=== PATIENT | female | born 1965 | race Two or more races ===

== ENCOUNTER 2022-03-02 03:17 | Inpatient (IN) | payer MEDICAID ==
[~2022-03-02] VITALS: Ht 152.4 cm; Wt 124.8 kg
[2022-03-02 03:54] LABS: Calcium 8.7 mg/dL (8.5-10.1); Potassium 3.8 mmol/L (3.5-5.1)
[2022-03-02 03:58] LABS: BUN/Creatinine Ratio 20.4; Bilirubin, Total 1.8 mg/dL (0.2-1.0); Total Protein 8.1 g/dL (6.4-8.2)
[2022-03-02 03:59] LABS: Basophils # (auto) 0.1 10 ^3/uL (0-0.2); Basophils % (auto) 1.7 % (0.0-2.0); Eosinophils # (auto) 0.1 10 ^3/uL (0-0.8); Eosinophils % (auto) 1.7 % (0.0-7.0); Hematocrit 39.6 % (36.0-46.0); Hemoglobin 13.8 g/dL (12.2-16.2); Lymphocytes # (auto) 2.2 10 ^3/uL (0.4-5.4); Lymphocytes % (auto) 28.6 % (10.0-50.0); Mean Corpuscular Hemoglobin 32.6 pg (28.0-32.0); Mean Corpuscular Hgb Conc. 34.9 g/dL (32.0-36.0); Mean Corpuscular Volume 93.4 fL (80.0-100.0); Monocytes # (auto) 0.4 10 ^3/uL (0-1.3); Monocytes % (auto) 5.4 % (0.0-12.0); Neutrophils # (auto) 4.9 10 ^3/uL (1.6-8.6); Neutrophils % (auto) 62.6 % (37.0-80.0); Nucleated Red Blood Cells % 0.1 %; Red Blood Cells 4.24 10^6/uL (4.0-5.20); Red Cell Distribution Width 14.2 % (11.8-14.3); White Blood Cell 7.8 10^3/uL (4.4-10.8)
[2022-03-02 04:52] LABS: Urine Bacteria FEW /hpf (None Seen); Urine Blood Negative /uL (Negative); Urine Specific Gravity 1.009 (1.001-1.035); Urine WBC 1 /hpf (0 - 5)
[2022-03-02] MEDS ORDERED: ACETAMINOPHEN 325 MG TAB PO ONE (06:00)
[2022-03-02] MEDS ORDERED: cloNIDine HCL 0.1 MG TAB PO ONE (07:15)
[2022-03-02] MEDS ORDERED: ASPirin 81 mg TAB PO ONE (07:30)
[2022-03-02] MEDS ORDERED: MORPHINE SULFATE INJ 2 MG/ml SYRG IV PRN ×2 (08:45)
[2022-03-02] MEDS ORDERED: HYDROcodone-ACET 5/325MG TAB PO PRN (08:45)
[2022-03-02] MEDS ORDERED: LABETALOL HCL 5 MG/ML 4ML SYRINGE IV PRN (08:45)
[2022-03-02] MEDS ORDERED: amLODIPine BESYLATE 5 MG TAB PO ONE (08:45)
[2022-03-02] MEDS ORDERED: ALUM & MAG HYDROX-SIMETH LIQ(MAALOX) 30 ML PO PRN (08:45)
[2022-03-02] MEDS ORDERED: ATORVASTATIN 20 MG TAB PO ONE (08:45)
[2022-03-02] MEDS ORDERED: VALSARTAN 80 MG TAB PO ONE (08:45)
[2022-03-02] MEDS ORDERED: DOCUSATE SOD 100 MG CAP PO PRN (08:45)
[2022-03-02] MEDS ORDERED: DEXTROSE (50%) 50ML SYRG IV PRN (08:45)
[2022-03-02] MEDS ORDERED: NITROGLYCERIN 0.4 MG SL TAB SL PRN (08:45)
[2022-03-02] MEDS ORDERED: ADENOSINE 107 MG in GIVE UN-DILUTED 0 ML IV ONE (10:00)
[2022-03-02 11:23] VITALS: BP 143/83
[2022-03-02] MEDS: ACCU-CHEK COMFORT CURVE STRIP VI SCH ×3 (11:53→23:37)
[2022-03-02] MEDS: InsuLIN REG 1unit/0.01ml Soln (100units/ml) SC SCH ×3 (11:53→23:37)
[2022-03-02] MEDS: SODIUM CHLOR 0.9% PF (SALINE LOCK) 10ML VIAL/SYR IV SCH ×2 (14:03→21:38)
[2022-03-02 23:46] VITALS: BP 148/88
[2022-03-03] VITALS (7 sets, daily range): BP systolic 124–169; BP diastolic 78–89
[2022-03-03] MEDS: SODIUM CHLOR 0.9% PF (SALINE LOCK) 10ML VIAL/SYR IV SCH ×2 (05:56→12:54)
[2022-03-03] MEDS: ACCU-CHEK COMFORT CURVE STRIP VI SCH ×3 (05:56→16:55)
[2022-03-03] MEDS: ACETAMINOPHEN 325 MG TAB PO PRN (05:56)
[2022-03-03] MEDS: InsuLIN REG 1unit/0.01ml Soln (100units/ml) SC SCH ×3 (05:57→17:21)
[2022-03-03] MEDS ORDERED: AMLO-489 PO (07:28)
[2022-03-03] MEDS ORDERED: VALS320T15 PO (07:28)
[2022-03-03] MEDS ORDERED: ATOR20TA50 PO (07:28)
[2022-03-03] MEDS ORDERED: SITA50TA28 PO (07:28)
[2022-03-03] MEDS ORDERED: ALPRAZolam 0.5 MG TAB PO PRN (11:15)
[2022-03-03 12:20] LABS: Cholesterol 147 mg/dL (< 200); HDL Cholesterol 42 mg/dL (40-59); LDL Cholesterol 90 mg/dL (< 100); Triglycerides 154 mg/dL (< 150)
[2022-03-03 12:28] LABS: INR 1.04 (0.9-1.15); Partial Thromboplastin Time 26.1 sec (23.6-33.0)
[2022-03-03] MEDS: VALSARTAN 80 MG TAB PO SCH (12:36)
[2022-03-03] MEDS: amLODIPine BESYLATE 5 MG TAB PO SCH (12:37)
[2022-03-04] MEDS: SODIUM CHLOR 0.9% PF (SALINE LOCK) 10ML VIAL/SYR IV SCH ×3 (01:48→14:31)
[2022-03-04 05:00] VITALS: BP 144/80
[2022-03-04] MEDS: InsuLIN REG 1unit/0.01ml Soln (100units/ml) SC SCH ×3 (06:00→12:11)
[2022-03-04] MEDS: ACCU-CHEK COMFORT CURVE STRIP VI SCH ×3 (06:00→12:08)
[2022-03-04] MEDS: ACETAMINOPHEN 325 MG TAB PO PRN (08:59)
[2022-03-04 09:00] VITALS: BP 142/71
[2022-03-04] MEDS: amLODIPine BESYLATE 5 MG TAB PO SCH (09:00)
[2022-03-04] MEDS: VALSARTAN 80 MG TAB PO SCH (09:00)
[2022-03-04] MEDS ORDERED: ATORVASTATIN 20 MG TAB PO SCH (10:00)
[2022-03-04 13:38] VITALS: BP 131/84
[2022-03-04] MEDS ORDERED: VALS320T15 PO (14:30)
[2022-03-04] MEDS ORDERED: SITA100T23 PO (14:30)
[2022-03-04] MEDS ORDERED: AMLO-489 PO (14:30)
[2022-03-04] MEDS ORDERED: ATOR20TA50 PO (14:30)
[2022-03-04] MEDS ORDERED: ASPI1TAB20 PO (14:30)
[2022-03-04 15:01] VITALS: BP 142/71
== END 2022-03-04 16:13 | disposition home or self-care (01) | DRG 199 ==
LOC: ER 03:17 → TELE 08:38 → TELE-WESTW 23:06
PROVIDERS: ADMIT Internal Medicine; ATTEND Internal Medicine
DX: I16.0 Hypertensive urgency (principal); Z68.43 Body mass index [BMI] 50.0-59.9, adult; E11.65 Type 2 diabetes mellitus with hyperglycemia; I10 Essential (primary) hypertension; E66.01 Morbid (severe) obesity due to excess calories; F41.0 Panic disorder [episodic paroxysmal anxiety]; Z20.822 Contact with and (suspected) exposure to COVID-19
CPT/HCPCS: 36415; 71045; 76705; 78452; 80053; 80061; 81001; 82248; 82962; 83036; 83880; 84443; 84484; 85025; 85610; 85730; 93005; 93017; 93306; 96365; 96375; G0378; J0153; J1815; J3490

== ENCOUNTER 2023-12-27 11:21 | Inpatient (IN) | payer MEDICAID ==
[~2023-12-27] VITALS: Ht 157.5 cm; Wt 125.8 kg
[~2023-12-27 11:21] MED LIST: AMLO1TAB22 PO; AMOX875T4 PO; ASPI1TAB20 PO; ATOR20TA50 PO; FURO1TAB33 PO; POTA-180 PO; SITA100T23 PO; VALS320T PO
[2023-12-27 12:23] LABS: Urine Bacteria None Seen /hpf (None Seen)
[2023-12-27 12:27] LABS: Chloride 102 mmol/L (98-107); Potassium 4.4 mmol/L (3.5-5.1); Sodium 135 mmol/L (136-145)
[2023-12-27 12:28] LABS: Anion Gap 7 (5-15); Basophils # (auto) 0.1 10 ^3/uL (0-0.2); Basophils % (auto) 0.6 % (0.0-2.0); Carbon Dioxide 26 mmol/L (20-30); Eosinophils # (auto) 0.1 10 ^3/uL (0-0.8); Eosinophils % (auto) 1.2 % (0.0-7.0); Hematocrit 43.3 % (36.0-46.0); Hemoglobin 14.7 g/dL (12.2-16.2); Lymphocytes % (auto) 28.8 % (10.0-50.0); Mean Corpuscular Hemoglobin 31.8 pg (28.0-32.0); Mean Corpuscular Hgb Conc. 34.1 g/dL (32.0-36.0); Mean Corpuscular Volume 93.4 fL (80.0-100.0); Monocytes # (auto) 0.6 10 ^3/uL (0-1.3); Monocytes % (auto) 5.4 % (0.0-12.0); Neutrophils # (auto) 6.8 10 ^3/uL (1.6-8.6); Nucleated Red Blood Cells % 0.1 %; Red Blood Cells 4.63 10^6/uL (4.0-5.20); Red Cell Distribution Width 14.1 % (11.8-14.3); White Blood Cell 10.6 10^3/uL (4.4-10.8)
[2023-12-27 12:29] LABS: Calcium 9.5 mg/dL (8.5-10.1)
[2023-12-27 12:34] LABS: BUN/Creatinine Ratio 23.5 (10.0-20.0); Blood Urea Nitrogen 20 mg/dL (9-23); Glucose 215 mg/dL (74-106)
[2023-12-27 12:51] LABS: Urine Blood Negative /uL (Negative); Urine Clarity Clear (Clear); Urine Color Light-Yellow (Yellow); Urine Protein, UAD Negative (Negative); Urine Specific Gravity 1.014 (1.001-1.035); Urine Urobilinogen Normal (Negative); Urine WBC <1 /hpf (0 - 5); Urine pH 6.5 (5.0-9.0)
[2023-12-27] MEDS ORDERED: MORPHINE SULFATE INJ 2 MG/ml SYRG IV PRN (13:30)
[2023-12-27] MEDS ORDERED: ONDANSETRON HCL 4 MG/2 ML VIAL IV PRN (13:30)
[2023-12-27] MEDS ORDERED: DEXTROSE (50%) 50ML SYRG IV PRN (13:30)
[2023-12-27] MEDS ORDERED: ACETAMINOPHEN 325 MG TAB PO PRN (13:30)
[2023-12-27] MEDS ORDERED: HYDROcodone-ACET 5/325MG TAB PO PRN (13:30)
[2023-12-27] MEDS ORDERED: DOCUSATE SOD 100 MG CAP PO PRN (13:30)
[2023-12-27] MEDS: ACCU-CHEK COMFORT CURVE STRIP VI SCH (17:00)
[2023-12-27] MEDS: InsuLIN REG 1unit/0.01ml Soln (100units/ml) SC SCH ×2 (17:00→20:52)
[2023-12-27 17:29] LABS: Amphetamine Screen, Urine Neg (NEGATIVE); Barbiturate Scree,Urine Neg (NEGATIVE); Benzodiazephine Screen, Urine Neg (NEGATIVE); Cannabinoid Screen, Urine Neg (NEGATIVE); Cocaine Screen, Urine Neg (NEGATIVE); Opiate Scree,Urine Neg (NEGATIVE); Phencyclidine Screen, Urine Neg (NEGATIVE)
[2023-12-27 17:48] LABS: Magnesium 1.7 mg/dL (1.6-2.6)
[2023-12-27] MEDS: SODIUM CHLOR 0.9% PF (SALINE LOCK) 10ML VIAL/SYR IV SCH (20:45)
[2023-12-27] MEDS: ATORVASTATIN 20 MG TAB PO SCH (21:02)
[2023-12-27] MEDS: METOPROLOL TARTRATE 25 MG TAB PO SCH (21:03)
[2023-12-27] MEDS: ALPRAZolam 0.25 MG TAB PO PRN (21:03)
[2023-12-27] MEDS: FUROSEMIDE 40 MG/4 ML VIAL IV ONE (21:05)
[2023-12-27] MEDS: VALSARTAN 80 MG TAB PO SCH (21:17)
[2023-12-28] VITALS (8 sets, daily range): BP systolic 145–180; BP diastolic 83–95; PULSE 81–113; RESP 14–22; TEMP 97.6–98; O2SAT 93–96
[2023-12-28] MEDS: NITROGLYCERIN 0.4 MG SL TAB SL PRN (04:55)
[2023-12-28 05:26] LABS: Alanine Aminotransferase 37 U/L (7-40); Albumin 4.6 g/dL (3.2-4.8); Alkaline Phosphatase 84 U/L (46-116); Anion Gap 9 (5-15); Aspartate Aminotransferase 32 U/L (13-40); Bilirubin, Total 1.8 mg/dL (0.2-1.0); Blood Urea Nitrogen 10 mg/dL (9-23); Carbon Dioxide 23 mmol/L (20-30); Chloride 102 mmol/L (98-107); Glucose 149 mg/dL (74-106); Sodium 134 mmol/L (136-145)
[2023-12-28] MEDS: ACETAMINOPHEN 325 MG TAB PO PRN (05:46)
[2023-12-28 07:17] LABS: Basophils # (auto) 0 10 ^3/uL (0-0.2); Basophils % (auto) 0.6 % (0.0-2.0); Eosinophils # (auto) 0.1 10 ^3/uL (0-0.8); Eosinophils % (auto) 0.7 % (0.0-7.0); Hematocrit 41.5 % (36.0-46.0); Hemoglobin 13.9 g/dL (12.2-16.2); Lymphocytes # (auto) 2.7 10 ^3/uL (0.4-5.4); Lymphocytes % (auto) 32.4 % (10.0-50.0); Mean Corpuscular Hemoglobin 31.4 pg (28.0-32.0); Mean Corpuscular Hgb Conc. 33.5 g/dL (32.0-36.0); Mean Corpuscular Volume 93.6 fL (80.0-100.0); Monocytes # (auto) 0.5 10 ^3/uL (0-1.3); Monocytes % (auto) 5.7 % (0.0-12.0); Neutrophils # (auto) 5.1 10 ^3/uL (1.6-8.6); Neutrophils % (auto) 60.6 % (37.0-80.0); Nucleated Red Blood Cells % 0.1 %; Red Blood Cells 4.43 10^6/uL (4.0-5.20); Red Cell Distribution Width 14.3 % (11.8-14.3); White Blood Cell 8.4 10^3/uL (4.4-10.8)
[2023-12-28] MEDS: FUROSEMIDE 20 MG TAB PO SCH (10:00)
[2023-12-28] MEDS ORDERED: VALSARTAN 160 MG PO SCH (10:00)
[2023-12-28] MEDS: ASPirin-EC 81 mg tab PO SCH (10:00)
[2023-12-28] MEDS: ADENOSINE 107 MG in GIVE UN-DILUTED 0 ML IV ONE (10:31)
[2023-12-28] MEDS: hydrALAZINE HCL 20 MG/ML VL IV PRN (12:09)
[2023-12-28] MEDS ORDERED: METO25TA93 PO (12:42)
[2023-12-28] MEDS ORDERED: SITA50TA25 PO (12:42)
[2023-12-28] MEDS: METOPROLOL TARTRATE 25 MG TAB PO SCH (21:14)
[2023-12-28] MEDS: ATORVASTATIN 20 MG TAB PO SCH (21:15)
[2023-12-29 01:00] VITALS: BP 146/82; PULSE 71; RESP 17; TEMP 97.9; O2SAT 92
[2023-12-29 05:00] VITALS: BP 153/87; PULSE 72; RESP 18; TEMP 98; O2SAT 95
[2023-12-29 08:00] VITALS: PULSE 76
[2023-12-29 09:00] VITALS: BP 174/84; PULSE 75; RESP 18; TEMP 97.9; O2SAT 98
[2023-12-29] MEDS ORDERED: METO-6 PO (11:32)
[2023-12-29] MEDS ORDERED: VALS320T PO (11:32)
[2023-12-29] MEDS ORDERED: HYDR25TA5 PO (11:32)
[2023-12-29] MEDS: hydroCHLOROthiazide 25 MG TAB PO ONE (11:45)
[2023-12-29 13:00] VITALS: BP 166/92; PULSE 70; RESP 18; TEMP 98; O2SAT 96
[2023-12-29 13:30] VITALS: BP 155/78; PULSE 86
== END 2023-12-29 14:35 | disposition home or self-care (01) | DRG 199 ==
LOC: ER 11:21 → TELE 13:51 → TELE-CENTR 12-28 12:06
PROVIDERS: ADMIT Nurse Practitioner Family; ATTEND Nurse Practitioner Acute Care
DX: I16.0 Hypertensive urgency (principal); Z68.43 Body mass index [BMI] 50.0-59.9, adult; E11.65 Type 2 diabetes mellitus with hyperglycemia; E66.01 Morbid (severe) obesity due to excess calories; E78.5 Hyperlipidemia, unspecified; F41.9 Anxiety disorder, unspecified; Z79.899 Other long term (current) drug therapy; Z82.49 Family history of ischemic heart disease and other diseases of the circulatory system; Z83.3 Family history of diabetes mellitus; Z90.710 Acquired absence of both cervix and uterus; Z98.891 History of uterine scar from previous surgery
CPT/HCPCS: 36415; 71046; 78452; 80048; 80053; 80061; 80307; 81001; 82962; 83036; 83735; 83880; 84443; 84484; 85025; 87081; 93005; 93017; 93306; G0378; J0153; J1815